=== PATIENT | female | born 1935 | race African-American/Black ===

== ENCOUNTER 2025-06-17 15:18 | Emergency (ER) | payer MEDICARE, OTHER ==
[~2025-06-17] VITALS: Ht 167.6 cm; Wt 45.0 kg
[~2025-06-17 15:18] MED LIST: ATOR-2 PO; BETA55 EACHEYE; CARV3.1242 PO; CLOP75TA33 PO; DES150 PO; DORZ10DR8 EACHEYE; DULO20CA18 PO; FURO20TA4 PO; HYDR25TA78 PO; ISOS30TA91 PO; LOSA25TA26 PO; PANT40TA51 PO; TRAZ150T78 PO
[2025-06-17 15:19] VITALS: O2SAT 98
[2025-06-17 16:03] LABS: BASOPHILS % 0.7 % (0.0-2.0); EOSINOPHILS % 0.3 % (0.0-5.0); HEMATOCRIT. 33.7 % (36.0-48.0); HEMOGLOBIN. 11.2 g/dL (12.0-16.0); LYMPHOCYTES % 7.1 % (20.0-50.0); MEAN PLATELET VOLUME 9.1 fl (7.4-10.4); MONOCYTES % 12.0 % (2.0-8.0); NEUTROPHILS % 79.9 % (40.0-76.0); PLATELET 93 x1000/uL (130-400); RED BLOOD CELL COUNT 3.68 mill/uL (4.2-5.4); RED CELL DISTRIBUTION WIDTH 16.2 % (11.6-14.6)
[2025-06-17] MEDS: MORPHINE SULFATE 4 MG/ML INJ (FOR IV/IM USE) IV ONE (16:15)
[2025-06-17 16:17] LABS: CREATININE 2.2 mg/dL (0.6-1.0); UREA NITROGEN BLOOD 11.0 mg/dL (9-23)
[2025-06-17 18:08] VITALS: TEMP 36.6
[2025-06-17] MEDS: MORPHINE SULFATE 2 MG/ML INJ (NOT FOR IM USE) IV ONE (20:57)
[2025-06-17 21:25] VITALS: BP 122/88; PULSE 70; RESP 12; O2SAT 97
== END 2025-06-17 21:39 | disposition short-term general hospital (02) ==
LOC: ER 15:18 → CMPBEDREQ 06-18 07:58
DX: S72.009A Fracture of unspecified part of neck of unspecified femur, initial encounter for closed fracture (principal); N18.6 End stage renal disease; I12.0 Hypertensive chronic kidney disease with stage 5 chronic kidney disease or end stage renal disease; Z79.899 Other long term (current) drug therapy; Z86.73 Personal history of transient ischemic attack (TIA), and cerebral infarction without residual deficits; Z88.0 Allergy status to penicillin; Z88.5 Allergy status to narcotic agent; Z99.2 Dependence on renal dialysis
CPT/HCPCS: 99285; 96374; 73700; 71045; 80048; 85025; 36415; 73502; 96376; J2270 ×2

== ENCOUNTER 2025-07-03 15:53 | Emergency (ER) | payer OTHER ==
[~2025-07-03] VITALS: Ht 165.1 cm; Wt 56.0 kg
[2025-07-03 16:02] VITALS: O2SAT 99
[2025-07-03 17:57] LABS: BASOPHILS % 0.9 % (0.0-2.0); EOSINOPHILS % 0.5 % (0.0-5.0); HEMATOCRIT. 30.6 % (36.0-48.0); HEMOGLOBIN. 10.0 g/dL (12.0-16.0); LYMPHOCYTES % 13.7 % (20.0-50.0); MEAN PLATELET VOLUME 9.1 fl (7.4-10.4); MONOCYTES % 10.2 % (2.0-8.0); NEUTROPHILS % 74.7 % (40.0-76.0); PLATELET 209 x1000/uL (130-400); RED BLOOD CELL COUNT 3.32 mill/uL (4.2-5.4); RED CELL DISTRIBUTION WIDTH 16.4 % (11.6-14.6)
[2025-07-03 18:37] LABS: CREATININE 2.1 mg/dL (0.6-1.0)
[2025-07-03 18:38] LABS: PROTEIN TOTAL 7.2 g/dL (6.0-8.3); UREA NITROGEN BLOOD 9 mg/dL (9-23)
[2025-07-03 18:39] LABS: ASPARTATE AMINOTRANSFERASE 25 IU/L (<34)
[2025-07-03 18:40] LABS: BILIRUBIN DIRECT 0.2 mg/dL (<=3.0); BILIRUBIN TOTAL 0.6 mg/dL (0.1-1.0); TROPONIN I HIGH SENSITIVITY 14 ng/L (3.0-34)
[2025-07-03] MEDS: SODIUM CHLORIDE 0.9% 500 ML IV ONE (19:11)
[2025-07-03 19:45] LABS: INR 1.0
[2025-07-03 20:57] LABS: TROPONIN I HIGH SENSITIVITY 17 ng/L (3.0-34)
[2025-07-03 22:00] VITALS: BP 128/44; PULSE 73; RESP 17; TEMP 36.7; O2SAT 99
== END 2025-07-03 22:10 | disposition short-term general hospital (02) ==
LOC: ER 15:53 → CMPBEDREQ 22:41
DX: R07.89 Other chest pain (principal); I48.91 Unspecified atrial fibrillation; I11.0 Hypertensive heart disease with heart failure; I50.9 Heart failure, unspecified; I25.2 Old myocardial infarction; Z79.02 Long term (current) use of antithrombotics/antiplatelets; Z99.2 Dependence on renal dialysis; Z88.5 Allergy status to narcotic agent; Z88.0 Allergy status to penicillin; Z86.73 Personal history of transient ischemic attack (TIA), and cerebral infarction without residual deficits; Z79.899 Other long term (current) drug therapy
CPT/HCPCS: 99285; 71045; 80076; 80048; 83880; 83735; 85025; 85610; 85730; 84484; 36415; 93005; J7040; A4606